=== PATIENT | female | born 1975 | race Native Hawaiian/Other Pacific Islander ===

== ENCOUNTER 2017-12-04 06:06 | Observation (INO) | payer MEDICAID ==
[~2017-12-04 06:06] MED LIST: ANCEF/STERILE WATER 2 GM/20 ML IV NR
[2017-12-04] MEDS ORDERED: DIPRIVAN 10 MG/ML IV ONE ×2 (07:17→10:21)
[2017-12-04] MEDS ORDERED: SUBLIMAZE ONE ×2 (07:17→10:29)
[2017-12-04] MEDS ORDERED: NACL BACTERIOSTATIC INFILTRATI ONE (07:26)
[2017-12-04] MEDS ORDERED: LACTATED RINGERS 1,000 ML ONE ×3 (07:42→11:50)
[2017-12-04] MEDS ORDERED: ZOFRAN IV PRN (07:44)
--- NOTE | 2017-12-04 07:44 | Anesthesia Consultation ---
Anesthesia Consult and Med Hx Date of service: 12/04/17 - Airway Anesthetic Teeth Evaluation: Good ROM Head & Neck: Adequate Mental/Hyoid Distance: Adequate Mallampati Class: Class II Intubation Access Assessment: Probably Good - Pulmonary Exam CTA: Yes - Cardiac Exam Cardiac Exam: RRR - Pre-Operative Health Status ASA Pre-Surgery Classification: ASA2, ASA3 Proposed Anesthetic Plan: General - Pulmonary Hx Smoking: No Hx Asthma: No - Cardiovascular System Hx Hypertension: No - Central Nervous System Hx Psychiatric Problems: No - Gastrointestinal Hx Gastroesophageal Reflux Disease: Yes (controlled by occasional Prilosec) - Endocrine Hx End Stage Renal Disease: No Hx Liver Disease: No Hx Thyroid Disease: No - Hematic Hx Anemia: No - Other Systems Hx Alcohol Use: No Hx Substance Use: No Hx Cancer: Yes
--- NOTE | 2017-12-04 07:44 | Anesthesia Day of Surgery ---
Anesthesia Day of Surgery - Day of Surgery Patient Examined: Yes Patient H&P Reviewed: Yes Patient is NPO: Yes
[2017-12-04] MEDS ORDERED: XYLOCAINE 1% 20 mL INFILTRATI NR (07:45)
[2017-12-04] MEDS: LACTATED RINGERS 1,000 ML IV SCH ×2 (07:45→21:33)
[2017-12-04] MEDS ORDERED: PEPCID IV ONE ×2 (07:46→10:00)
[2017-12-04 07:49] LABS: Basophils # (Auto) 0.1 K/mm3 (0.0-0.1); Basophils % (Auto) 0.9 % (0.0-1.8); Eosinophils # (Auto) 0.2 K/mm3 (0.0-0.4); Eosinophils % (Auto) 2.7 % (0.0-4.3); Hematocrit 36.4 % (30.3-42.9); Hemoglobin 12.4 gm/dl (10.1-14.3); Lymphocytes # (Auto) 1.7 K/mm3 (1.2-5.4); Lymphocytes % (Auto) 30.7 % (13.4-35.0); Mean Corpuscular HGB Conc 34 % (30-34); Mean Corpuscular Hemoglobin 29 pg (28-32); Mean Corpuscular Volume 86 fl (79-97); Monocytes # (Auto) 0.4 K/mm3 (0.0-0.8); Monocytes % (Auto) 7.3 % (0.0-7.3); Platelet Count 262 K/mm3 (140-440); Red Blood Count 4.23 M/mm3 (3.65-5.03); Red Cell Distribution Width 14.6 % (13.2-15.2)
[2017-12-04] MEDS ORDERED: VERSED IV NR (08:00)
[2017-12-04] MEDS ORDERED: MARCAINE 0.5% INFILTRATI NR (08:00)
[2017-12-04] MEDS ORDERED: NACL P/F VIAL (10 ML) INFILTRATI NR (08:00)
[2017-12-04] MEDS ORDERED: BACITRACIN ONE (09:15)
[2017-12-04] MEDS ORDERED: QUELICIN ONE (10:50)
[2017-12-04] MEDS ORDERED: ROBINUL ONE (10:50)
[2017-12-04] MEDS ORDERED: ZOFRAN ONE (10:50)
[2017-12-04] MEDS ORDERED: NEO SYNEPHRINE/NS Syringe(OR USE) IV ONE ×2 (10:50→13:59)
[2017-12-04] MEDS ORDERED: DECADRON ONE (10:50)
[2017-12-04] MEDS ORDERED: XYLOCAINE MPF 2% ONE (10:50)
[2017-12-04] MEDS ORDERED: NACL 0.9% IR ONE (12:22)
[2017-12-04] MEDS ORDERED: NACL P/F VIAL (10 ML) IV ONE (12:23)
[2017-12-04] MEDS ORDERED: BACITRACIN IR ONE (12:23)
[2017-12-04] MEDS ORDERED: NACL 0.9% 1000 ML 0 ML ONE (12:55)
--- NOTE | 2017-12-04 13:06 | Post Operative Note ---
Date of procedure: 12/04/17 Pre-op diagnosis: right breast cancer status post neoadjuvant treatment; desire for contrala Post-op diagnosis: same Findings: See pathology Procedure: 1. Left prophylactic mastectomy 2. Right mastectomy with right axillary lymph node dissection Anesthesia: GEORGINA Surgeon: JORDI PERSAUD Compensation Coordinator: DAVID HURST Estimated blood loss: 50-100ml Pathology: list (left breast; right breast; right axillary content) Specimen disposition: to lab Condition: stable Disposition: other (Dr. Polanco Work to follow with immediate reconstruction)
[2017-12-04] MEDS ORDERED: REGLAN PO PRN (13:09)
[2017-12-04] MEDS ORDERED: MORPHINE IV PRN ×2 (13:09→13:22)
[2017-12-04] MEDS ORDERED: NORCO 5/325 PO PRN (13:09)
--- NOTE | 2017-12-04 15:00 | Procedure Note ---
Date of procedure: 12/04/17 Pre-op diagnosis: Bilateral Acquired Absence of Breasts/Breast Cancer Post-op diagnosis: same Procedure: Bilateral Immediate Breast Reconstruction with Allergan 410 Silicone Gel 770cc Implants Anesthesia: GETA Surgeon: MADELINE RICH JR Pathology: none Condition: stable Disposition: PACU
[2017-12-04] MEDS: DILAUDID IV PRN ×3 (15:18→15:42)
[2017-12-04] MEDS ORDERED: DILAUDID ONE (15:44)
--- NOTE | 2017-12-04 20:04 | Operative Report ---
PREOPERATIVE DIAGNOSES: 1. Bilateral acquired breast deformity. 2. Status post bilateral mastectomies. 3. Breast cancer. POSTOPERATIVE DIAGNOSES: 1. Bilateral acquired breast deformity. 2. Status post bilateral mastectomies. 3. Breast cancer. PROCEDURE: Bilateral immediate implant reconstruction of bilateral breasts. SURGEON: Anshul Segundo MD NIGHT PATROL INSPECTOR: Deng Jon CSA. DESCRIPTION OF PROCEDURE: The patient was brought in the operating room and placed on the table in supine position. Following administration of general anesthesia, bilateral breasts and axillae were prepped with Betadine solution, draped in usual sterile manner. Following bilateral mastectomies by Dr. Staley, the inframammary fold of bilateral breast was reestablished with interrupted 2-0 PDS sutures followed by placement of bilateral 770 mL full profile Allergan silicone gel implants followed by trimming of skin edges of the circumareolar mastectomies and deepithelialization of redundant skin in order to prevent a dog ear deformities, followed by layered closure using interrupted and running subcuticular 2-0 Monocryl sutures. Mastisol, Steri-Strips, and sterile dressings applied. The patient tolerated the procedure well and returned to recovery room in stable condition. JOB# [id number] FTW/NTS
[2017-12-05] MEDS: TYLENOL PO PRN ×2 (05:11→10:51)
--- NOTE | 2017-12-05 09:52 | Progress Note ---
Assessment and Plan - Patient Problems (1) Breast cancer metastasized to axillary lymph node Current Visit: Yes Status: Acute Qualifiers: Laterality: right Qualified Code(s): C50.911 - Malignant neoplasm of unspecified site of right female breast; C77.3 - Secondary and unspecified malignant neoplasm of axilla and upper limb lymph nodes; C77.3 - Secondary and unspecified malignant neoplasm of axilla and upper limb lymph nodes; C77.3 - Secondary and unspecified malignant neoplasm of axilla and upper limb lymph nodes; C77.3 - Secondary and unspecified malignant neoplasm of axilla and upper limb lymph nodes Plan to address problem: Patient doing well after bilateral mastectomy with implant placement We will discharge home see orders Subjective Date of service: 12/05/17 Patient Reports: Positive: no new complaints, feels better, tolerating a regular diet Objective Vital Signs - 12hr 12/05/17 12/05/17 12/05/17 00:24 04:58 07:24 Temperature 97.6 F 97.5 F L 97.5 F L Pulse Rate 64 81 64 Respiratory 18 18 14 Rate Blood Pressure 86/43 Blood Pressure 95/54 89/47 [Left] O2 Sat by Pulse 95 100 100 Oximetry - General physical appearance well developed, no distress - Additional Exam chest wound dressing intact with drains in place - Labs 12/04/17 07:30
--- NOTE | 2017-12-05 09:56 | Discharge Summary ---
Providers - Providers Date of Admission: 12/04/17 13:09 Date of discharge: 12/05/17 Attending physician: JORDI PERSAUD Primary care physician: GINA AMOS Hospitalization Reason for admission: postop observation Condition: Good Procedures: see op notes- bilateral mastectomy , R ALND, bilateral implants Hospital course: Patient did well postoperatively Disposition: DC-01 TO HOME OR SELFCARE - Discharge Diagnoses (1) Breast cancer metastasized to axillary lymph node Status: Acute Qualifiers: Laterality: right Qualified Code(s): C50.911 - Malignant neoplasm of unspecified site of right female breast; C77.3 - Secondary and unspecified malignant neoplasm of axilla and upper limb lymph nodes; C77.3 - Secondary and unspecified malignant neoplasm of axilla and upper limb lymph nodes; C77.3 - Secondary and unspecified malignant neoplasm of axilla and upper limb lymph nodes; C77.3 - Secondary and unspecified malignant neoplasm of axilla and upper limb lymph nodes Core Measure Documentation - Palliative Care Palliative Care/ Comfort Measures: Not Applicable - Core Measures Any of the following diagnoses?: none Exam - Constitutional Vitals: Temp Pulse Resp BP Pulse Ox 97.5 F L 64 14 86/43 100 12/05/17 07:24 12/05/17 07:24 12/05/17 07:24 12/05/17 07:24 12/05/17 07:24 General appearance: Present: no acute distress - Additional findings Additional findings: surgical site dressing clean and dry with drains in place Plan Activity: no restrictions, advance as tolerated Diet: regular Wound: drain care as instructed, other (per Dr. Segundo) Follow up with: GINA AMOS MD [Primary Care Provider] - 7 Days JORDI PERSAUD MD [Staff Physician] - 7 Days MADELINE SEGUNDO JR, MD [Staff Physician] - 7 Days Prescriptions: oxyCODONE /ACETAMINOPHEN [Percocet 5/325] 1 - 2 tab PO Q6HR PRN #30 tablet PRN Reason: Pain Promethazine [Phenergan TAB] 25 mg PO Q6HR PRN #10 tab PRN Reason: Nausea
--- NOTE | 2017-12-05 10:46 | Operative Report ---
PREOPERATIVE DIAGNOSES: 1. Right breast cancer, status post neoadjuvant treatment. 2. Desire for contralateral prophylactic mastectomy. POSTOPERATIVE DIAGNOSES: 1. Right breast cancer, status post neoadjuvant treatment. 2. Desire for contralateral prophylactic mastectomy. PROCEDURES: 1. Left prophylactic mastectomy. 2. Right mastectomy with right axillary lymph node dissection. SURGEON: Mar Staley MD ABATTOIR MANAGER: Omar Ybarra MD CO-SURGEON: Anshul Segundo MD for immediate reconstruction. TYPE OF ANESTHESIA: General. ESTIMATED BLOOD LOSS: Less than 100 mL for the first part of the procedure. CONDITION: Stable. INDICATIONS: This is a 42-year-old woman who had a large right breast cancer with involvement of the axillary lymph nodes. She has finished neoadjuvant treatment and wanted the above definitive surgical procedure. DESCRIPTION OF PROCEDURE: The patient was brought to the operating room, laid supine on the table. After adequate general endotracheal anesthesia was obtained, a right axillary roll was placed and the right and the left arm were placed out on arm boards with appropriate padding. Both breasts, axilla and chest wall were prepped and draped in the usual fashion. Initially, attention was turned to doing the prophylactic mastectomy. A circumareolar incision was made around the breast as drawn by Dr. Segundo. Flaps were created in all directions. The breast was then mobilized from medially to laterally and divided from the axillary fat without entering the axilla on the left side. Once the breast was removed, it was marked with sutures for orientation. Hemostasis was ascertained and the site was then packed with moist laps. Next, attention was turned to the right side. Again, a circumareolar incision was made as drawn previously. Flaps were created in all directions. The breast was mobilized from medially to laterally and then removed. The breast was marked with sutures for orientation and sent to pathology. Attention was then turned to the right axilla as the axillary fat had been easily divided from the breast itself. I decided to do an axillary dissection separately. She had very large palpable lymph nodes in the axilla. The axillary vein was identified as well as the thoracodorsal vessels and nerves. All the axillary fat below the axillary vein was swept inferiorly and all the fat above the thoracodorsal structures was swept down and we took the axillary fat out and sent separately as axillary content. At this point, hemostasis was ascertained and again this wound was packed. At this point, Dr. Work was present to continue with immediate reconstruction. The patient tolerated the first part of the procedure without any complications. JOB# [id number] DIPIKA/DEVON
[2017-12-05 11:42] VITALS: BP 96/55
== END 2017-12-05 12:45 | disposition home or self-care (01) ==
LOC: OR 06:06 → 3B-SURG 13:09
PROVIDERS: ADMIT Surgery; ATTEND Surgery
DX: C50.911 Malignant neoplasm of unspecified site of right female breast (principal); C77.3 Secondary and unspecified malignant neoplasm of axilla and upper limb lymph nodes; Z92.21 Personal history of antineoplastic chemotherapy
CPT/HCPCS: 19303; 19307; 19340; 36415; 85025; 88307; 88333; 88342; 88361; 96374; 96375; C1789; G0378; J0330; J0690; J1100; J1170; J2250; J2270; J2370; J2405; J2704; J3010; J7120; J7030

== ENCOUNTER 2017-12-08 16:40 | Emergency (ER) | payer MEDICAID ==
[2017-12-08] MEDS ORDERED: NACL 0.9% 1000 ML 1,000 ML IV ONE (16:55)
[2017-12-08] MEDS ORDERED: ZOFRAN ODT PO ONE (16:55)
[2017-12-08] MEDS ORDERED: PERCOCET 5/325 PO ONE (17:08)
--- NOTE | 2017-12-08 17:08 | Emergency Department Report ---
ED General Adult HPI - General Chief complaint: Medical Clearance Stated complaint: HEADACHE/VOMITING Time Seen by Provider: 12/08/17 16:53 Source: patient, family Mode of arrival: Wheelchair Limitations: No Limitations - History of Present Illness Initial comments: 42-year-old has a post bilateral mastectomy for breast CA this week on December 04 saw her surgeon today for postop. She is having no problems with that he stated that the area was looking good. per pt no infection. However since the surgery she's had a little bit of intermittent headaches with a little bit of nausea and wanted to get checked for possible flu. Her last chemotherapy was in September no recent chemoradiation. No fever no chills no cough no stiff neck no photophobia no rash. Headache is mild whole head. No sudden onset of exertional headache no stiff neck no fever. She denies any urinary complaints. She saw a surgeon today she says he was worried about the possibility that she may have been exposed to flu although she denies any full exposure.no myalgia or body aches, no rash, no sick contacts, no cp no abd pain, She wanted to come in and get checked just to make sure.ddx viral syndrome, post op reaction to anesthiesia, dehydration, uti, vs other -: Gradual, unknown Location: head Radiation: non-radiation Quality: aching Consistency: intermittent Worsens with: medication Associated Symptoms: denies other symptoms, headaches. denies: confusion, chest pain, cough, diaphoresis, fever/chills, loss of appetite, malaise, nausea/ vomiting, rash, seizure, shortness of breath, syncope, weakness - Related Data Home Medications Medication Instructions Recorded Confirmed Last Taken Ergocalciferol [Vitamin D2] 1 cap PO 2XW 12/01/17 12/04/17 11/23/17 Previous Rx's Medication Instructions Recorded Last Taken Type Promethazine [Phenergan TAB] 25 mg PO Q6HR PRN #10 tab 12/05/17 Unknown Rx oxyCODONE /ACETAMINOPHEN [Percocet 1 - 2 tab PO Q6HR PRN #30 tablet 12/05/17 Unknown Rx 5/325] Allergies Allergy/AdvReac Type Severity Reaction Status Date / Time No Known Allergies Allergy Verified 12/01/17 10:40 ED Review of Systems ROS: Stated complaint: HEADACHE/VOMITING Other details as noted in HPI Comment: All other systems reviewed and negative Constitutional: denies: diaphoresis, fever, malaise, weakness Eyes: denies: eye pain, eye discharge, vision change ENT: denies: dental pain, hearing loss, epistaxis Respiratory: denies: cough, orthopnea, shortness of breath, SOB with exertion, SOB at rest, stridor, wheezing Cardiovascular: denies: chest pain, palpitations, dyspnea on exertion, orthopnea , edema, syncope, paroxysmal nocturnal dyspnea Endocrine: denies: excessive sweating, flushing Gastrointestinal: nausea. denies: abdominal pain, vomiting, diarrhea, constipation, hematemesis, melena, hematochezia Genitourinary: denies: urgency, frequency, hematuria, discharge Musculoskeletal: denies: arthralgia, myalgia Neurological: headache. denies: weakness, numbness, paresthesias, confusion, abnormal gait, vertigo Hematological/Lymphatic: denies: easy bleeding, easy bruising ED Past Medical Hx - Past Medical History Hx Hypertension: No Hx Congestive Heart Failure: No Hx Diabetes: No Hx GERD: Yes Hx Liver Disease: No Hx of Cancer: Yes Hx Asthma: No Hx COPD: No Hx HIV: No - Surgical History Hx Breast Surgery: Yes (LUCY BX, R AXILLARY BX) Additional Surgical History: Double mastectomy on 12/04/17 for breast CA - Social History Smoking Status: Never Smoker Substance Use Type: None - Medications Home Medications: Home Medications Medication Instructions Recorded Confirmed Last Taken Type Ergocalciferol [Vitamin D2] 1 cap PO 2XW 12/01/17 12/04/17 11/23/17 History Promethazine [Phenergan TAB] 25 mg PO Q6HR PRN #10 tab 12/05/17 Unknown Rx oxyCODONE /ACETAMINOPHEN [Percocet 1 - 2 tab PO Q6HR PRN #30 tablet 12/05/17 Unknown Rx 5/325] ED Physical Exam - General Limitations: No Limitations General appearance: alert, in no apparent distress, anxious - Head Head exam: Present: atraumatic, normocephalic - Eye Eye exam: Present: PERRL, EOMI - ENT ENT exam: Present: normal exam, normal orophraynx - Neck Neck exam: Present: normal inspection. Absent: tenderness, meningismus - Respiratory Respiratory exam: Present: normal lung sounds bilaterally. Absent: respiratory distress, wheezes, rales, rhonchi, stridor - Cardiovascular Cardiovascular Exam: Present: regular rate, normal rhythm. Absent: bradycardia , tachycardia, irregular rhythm - GI/Abdominal GI/Abdominal exam: Present: soft. Absent: distended, tenderness, guarding, rebound, rigid, mass, pulsatile mass - Extremities Exam Extremities exam: Present: normal inspection. Absent: full ROM, tenderness, normal capillary refill, pedal edema, joint swelling, calf tenderness - Back Exam Back exam: Present: normal inspection. Absent: CVA tenderness (L), muscle spasm , paraspinal tenderness, vertebral tenderness - Neurological Exam Neurological exam: Present: alert, oriented X3, CN II-XII intact. Absent: motor sensory deficit - Psychiatric Psychiatric exam: Present: normal affect - Skin Skin exam: Absent: cyanosis, diaphoretic, erythema, urticaria, vesicles, petechiae, pallor ED Course Vital Signs 12/08/17 16:42 Temperature 98.9 F Pulse Rate 87 Respiratory 16 Rate Blood Pressure 123/68 O2 Sat by Pulse 97 Oximetry ED Medical Decision Making - Lab Data Result diagrams: 12/08/17 17:27 12/08/17 17:27 - Radiology Data Radiology results: report reviewed - Medical Decision Making Recent post double mastectomy for evaluation of intermittent headache with some nausea. Symptoms not suggestive of sepsis at this time. Headache is resolved in ED. So surgeon today no signs of postop infection per patient. Chest x-ray was read as negative no evidence of pneumonia or UTI or PE DVT at this time. Symptoms are likely related to the anesthesia and dehydration patient is therefore stable for outpatient follow-up. No evidence of fever or influenza is noted at this time she will continue her Percocet as needed we will start nausea medicine she regular doctor 1 day Critical care attestation.: If time is entered above; I have spent that time in minutes in the direct care of this critically ill patient, excluding procedure time. ED Disposition Clinical Impression: Headache, Dehydration Disposition: -01 TO HOME OR SELFCARE Is pt being admited?: No Condition: Stable Instructions: Acute Headache (ED), Dehydration (ED), [place] Drain Care ( ED), Acute Wound Care (ED) Additional Instructions: See her doctor in 1 day and return if nor alarming symptoms or call 911 continue your pain medication as needed as directed Time of Disposition: 19:32
[2017-12-08 17:44] LABS: Basophils # (Auto) 0.1 K/mm3 (0.0-0.1); Basophils % (Auto) 0.7 % (0.0-1.8); Eosinophils # (Auto) 0.2 K/mm3 (0.0-0.4); Eosinophils % (Auto) 2.4 % (0.0-4.3); Hematocrit 36.6 % (30.3-42.9); Hemoglobin 12.1 gm/dl (10.1-14.3); Lymphocytes # (Auto) 1.2 K/mm3 (1.2-5.4); Mean Corpuscular HGB Conc 33 % (30-34); Mean Corpuscular Hemoglobin 29 pg (28-32); Mean Corpuscular Volume 87 fl (79-97); Monocytes # (Auto) 0.4 K/mm3 (0.0-0.8); Monocytes % (Auto) 3.6 % (0.0-7.3); Platelet Count 255 K/mm3 (140-440); Red Blood Count 4.22 M/mm3 (3.65-5.03); Red Cell Distribution Width 15.1 % (13.2-15.2)
[2017-12-08 18:09] LABS: Alanine Aminotransferase 19 units/L (7-56); BUN/Creatinine Ratio 25; Blood Urea Nitrogen 10 mg/dL (7-17); Calcium 9.2 mg/dL (8.4-10.2); Hemolysis Index 14
[2017-12-08 18:35] LABS: Bilirubin,Urine NEG (Negative); Blood,Urine MOD (Negative); Color,Urine Yellow (Yellow); Mucus,Urine FEW /HPF; Nitrite,Urine NEG (Negative); Protein,Urine <15 mg/dL mg/dL (Negative); Urobilinogen,Urine < 2.0 mg/dL (<2.0)
--- NOTE | 2017-12-08 18:57 | XRay Report ---
FINAL REPORT EXAM: XR CHEST 1V AP HISTORY: CHEST PAIN TECHNIQUE: AP portable view of the chest PRIORS: None. FINDINGS: Lines, tubes, and devices: A left jugular port catheter terminates in the distal superior vena cava. Other tubing overlies the right lung base. Lungs and pleura: Trachea is normal in position. Bilateral apical pleural thickening is symmetrical and probably chronic. Lungs are clear of infiltrate, pleural effusion, vascular congestion, or pneumothorax. Cardiomediastinal silhouette: Cardiac and mediastinal silhouettes are unremarkable. Other: Bony structures demonstrate a dextroscoliosis of the thoracic spine creating distortion of the mediastinal structures. IMPRESSION: No acute cardiopulmonary process seen. Satisfactory left jugular port placement.
[2017-12-08 19:38] VITALS: BP 100/54
== END 2017-12-08 19:55 | disposition home or self-care (01) ==
LOC: ED 16:40
DX: E86.0 Dehydration (principal); R51 Headache; K21.9 Gastro-esophageal reflux disease without esophagitis
CPT/HCPCS: 36415; 71045; 80053; 81001; 84484; 85025; 87086; 96360; 99284; G0480; J7030; 80320; Q0162